=== PATIENT | male | born 1945 | race Caucasian/White ===

== ENCOUNTER → 2021-01-28 00:27 | Outpatient (CLI) | payer MEDICARE, SELFPAY ==
[2021-01-29 17:06] LABS: SARS-CoV-2 RNA PCR Negative
== END ==
PROVIDERS: PCP Family Medicine; Visit Provider Family Medicine
DX: Z76.89 Persons encountering health services in other specified circumstances (principal); Z20.822 Contact with and (suspected) exposure to COVID-19
CPT/HCPCS: C9803; U0003; U0005

== ENCOUNTER → 2022-10-06 12:45 | Outpatient (CLI) | payer MEDICARE, SELFPAY ==
--- NOTE | ~2022-10-06 | MR_ITS ---
MRI of the lumbar spine Clinical History: Radiculopathy Technique: Axial T2-weighted images, and sagittal T1-weighted, T2-weighted, and T2 fat-sat images wer e acquired. Findings: There is no fracture of the lumbar spine. 3 mm retrolisthesis of L4 over L5 noted. No suspi cious bone marrow signal abnormality seen. At L1-L2, there is no disc bulge or herniation. There is mild to moderate facet arthropathy. No spina l canal stenosis or neural foraminal narrowing. At L2-L3, there is minimal disc bulge and moderate to advanced facet arthropathy. There is left later al recess stenosis. There is moderate left neural foraminal narrowing and minimal right neural forami nal narrowing. At L3-L4, there is mild diffuse disc bulge with moderate to severe facet arthropathy. There is probab le mild left lateral recess stenosis. There is mild bilateral neural foraminal narrowing. At L4-L5, there is disc bulge and moderate to severe facet arthropathy. No lise central canal stenos is. There is severe bilateral neural foraminal narrowing. At L5-S1, there is disc bulge and advanced facet arthropathy. Suspected bilateral L5 pars interarticu jesus defects. There is moderate to severe bilateral neural foraminal narrowing, left worse than righ t. Paravertebral soft tissues are unremarkable. 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 3 mm retrolisthesis of L4 over L5. Moderate to advanced degenerative spondylosis, worst at L4-L5 and L5-S1, as detailed above. Reviewed, dictated and finalized at [facility]. 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 3 mm retrolisthesis of L4 over L5. Moderate to advanced degenerative spondylosis, worst at L4-L5 and L5-S1, as det vanita above.
== END ==
PROVIDERS: PCP Family Medicine
DX: M47.26 Other spondylosis with radiculopathy, lumbar region (principal)
CPT/HCPCS: 72148

== ENCOUNTER 2022-11-30 15:54 | Observation (INO) | payer MEDICARE, SELFPAY ==
[2022-11-30] VITALS (52 sets, daily range): BP systolic 60–114; BP diastolic 44–92; PULSE 99–140; RESP 18–44; TEMP 36.4–38.1; O2SAT 63–100; BMI 27.0
--- NOTE | ~2022-11-30 | US_ITS ---
EXAMINATION:US venous doppler LE RT INDICATION:Right leg pain TECHNIQUE: Multiple grayscale, color flow and Doppler images of the right lower extremity deep venous systems were obtained and reviewed. COMPARISON:No prior studies for comparison. FINDINGS: The common femoral, superficial femoral popliteal veins demonstrate normal respiratory vari ation, augmentation and compressibility. There is deep venous thrombosis in the right posterior tibia l and peroneal veins. The right popliteal vein is not visualized. IMPRESSION: 1: Limited study. Deep venous thrombosis of the right posterior tibial and peroneal veins. Reviewed, dictated and finalized at location A. IMPRESSION: 1: Limited study. Deep venous thrombosis of the right posterior tibial and terell heidi veins.
--- NOTE | ~2022-11-30 | XR_ITS ---
XR chest 1V portable 11/30/2022 20:22 Indication: Fever. Possible infection. Procedure: AP portable chest Comparison: No prior studies for comparison. Findings: Heart size normal. No focal air space disease, pulmonary edema, pleural effusion or suspect ed pneumothorax. There are surgical changes consistent with fusion at the upper thoracic spine. No ac luz osseous abnormality. Impression: 1: No acute cardiopulmonary disease. Reviewed, dictated and finalized at location [facility]. Impression: 1: No acute cardiopulmonary disease.
--- NOTE | ~2022-11-30 | XR_ITS ---
Supine portable view of the abdomen Clinical history: NG tube placement Findings: NG tube in satisfactory position. Bowel gas pattern is nonspecific. No evidence for obstruc tion or free air. No abnormal mass lesion or calcification is seen. Osseous structures are intact. Impression: NG tube in satisfactory position. Reviewed, dictated and finalized at [facility]. Impression: NG tube in satisfactory position.
--- NOTE | ~2022-11-30 | XR_ITS ---
XR knee RT 3V 11/30/2022 18:47 Indication: Right knee pain Procedure: 3 views right knee Comparison: No prior studies for comparison. Findings: There is mild-moderate tricompartment osteoarthritis. No fracture or traumatic malalignment . No significant joint effusion. No foreign bodies. Impression: 1: No acute bone or joint abnormality. Reviewed, dictated and finalized at location A. Impression: 1: No acute bone or joint abnormality.
--- NOTE | ~2022-11-30 | XR_ITS ---
Portable chest x-ray Comparison: 11/30/2022 at 8:20 PM Clinical History: Tube placement Findings: Endotracheal tube and NG tube are in satisfactory positions. Questionable focal retrocardi ac airspace disease. Cardiomediastinal silhouette is stable. Bones and soft tissues are unremarkable . Impression: Support tubes, as above. Questionable focal retrocardiac airspace disease. Reviewed, dictated and finalized at location . Impression: Support tubes, as above. Questionable focal retrocardiac airspace disease.
--- NOTE | ~2022-11-30 | XR_ITS ---
Portable chest x-ray Comparison: 11/30/2022 at 11:10 PM Clinical History: Line placement Findings: Endotracheal tube, NG tube, and right IJ line are in satisfactory positions. There is prob able minimal left basilar atelectasis versus pneumonia. Right lung clear. Cardiomediastinal silhouet te is stable. Bones and soft tissues are unremarkable. Impression: Support tubes, as above. No pneumothorax. Probable left basilar atelectasis versus pneumonia. Reviewed, dictated and finalized at location . Impression: Support tubes, as above. No pneumothorax. Probable left basilar atelectasis versus pneumonia.
[2022-11-30] MEDS: SODIUM CHLORIDE 0.9% IV 1,000 ML 999 ML IV CONT ×4 (16:00→20:11)
--- NOTE | 2022-11-30 16:09 | PC.NURSE ---
ED MD notified of hypotension and tachycardia. pt writhing on bed.
[2022-11-30 17:06] LABS: Hematocrit 40.6 % (42.0-52.0); Hemoglobin 13.4 g/dL (14.0-18.0); Immature Platelet Fraction Pct 2.7 % (0.9-11.2); Mean Corpuscular Hemoglobin 30.3 pg (26-34); Mean Corpuscular Volume 91.9 fl (80-100); Mean Platelet Volume 9.6 fl (7.4-10.4); Platelet Count Result 93 k/mm3 (150-375); Red Blood Count 4.42 M/mm3 (4.6-6.20); Red Cell Distribution Width 13.2 % (11.5-14.5); White Blood Count 3.5 K/mm3 (4.5-10.0)
--- NOTE | 2022-11-30 17:18 | ED.GENADULT ---
HPI - General Adult General Chief complaint: Extremity Injury, Lower Stated complaint: RIGHT LEG PAIN Time Seen by Provider: 11/30/22 16:13 History of Present Illness HPI narrative: 76-year-old male presenting to the emergency department for evaluation of increased agitation and right knee pain. Patient states he did have hyaluronic injections in his bilateral knees yesterday and began having increased pain in his right knee that radiates up to his right hip. Patient denies any associated chest pain or shortness of breath. Patient denies any associated nausea vomiting diarrhea. Patient denies any pain with urination, patient denies any headache. Patient denies any recent falls or injuries. Related Data Allergies Allergy/AdvReac Type Severity Reaction Status Date / Time No Known Allergies Allergy Unverified 08/04/14 14:45 Review of Systems Review of Systems: All systems reviewed & are unremarkable except as noted in HPI and below Exam Narrative: APPEARANCE: Agitated appearing and restless. HEAD: normocephalic, atraumatic. EYES: PERRLA/EOMI, conjunctivae clear. NOSE: Normal no drainage NECK: Supple. No adenopathy, no masses. RESPIRATORY: Airway patent, respirations nonlabored. Clear to auscultation bilaterally, no rales, rhonchi, wheezing. CARDIOVASCULAR: Regular rate and rhythm without murmurs rubs or gallops. ABDOMINAL: Soft, nontender, nondistended, normal bowel sounds MUSCULOSKELETAL: Wide range of motion for the right knee but patient does have some tenderness to palpation and does have an effusion of the right knee NEURO: Alert. Cranial nerves II through XII intact. Good gait. Good coordination SKIN: Warm, dry. Normal Color Course Course Emergency Course: 76-year-old male presented the ED for evaluation of right knee pain. Patient did have a low-grade fever and was tachycardic upon arrival to the ED. Patient did have some soft blood pressures but these did respond to rehydration. Patient's fever was treated with Tylenol and did improve. Patient did not have a leukocytosis, patient's hemoglobin is stable at 13.4. Patient had a mildly elevated CRP but his ESR was not elevated. Patient does have a possible EDILBERTO with a creatinine of 2.2. Patient initial lactic acid was elevated and repeat lactic acid was further elevated even after rehydration. UA did show some blood but no other significant evidence of underlying infection. Due to the patient complaining of right knee pain and having concern for underlying infection of the knee was tapped and did show a hemarthrosis. This was not a traumatic tap. Synovial fluid was sent for analysis and patient was started on Vanco and Zosyn. Blood cultures are also pending. Orthopedics was consulted for the knee. Ultrasound did show evidence of a DVT and patient was treated with Lovenox. Case was discussed with the hospitalist and patient was accepted to the IMU. Vital Signs Vital signs: Vital Signs Temperature 97.8 F 11/30/22 15:51 Pulse Rate 130 H 11/30/22 15:51 Respiratory Rate 18 11/30/22 15:51 Blood Pressure 82/62 L 11/30/22 15:51 Pulse Oximetry 98 11/30/22 15:51 Oxygen Delivery Room Air 11/30/22 15:51 Temperature 98.7 F 11/30/22 21:41 Pulse Rate 122 H 11/30/22 21:41 Respiratory Rate 33 H 11/30/22 21:41 Blood Pressure 90/68 L 11/30/22 21:41 Pulse Oximetry 73 L 11/30/22 20:45 Oxygen Delivery Room Air 11/30/22 15:51 Medical Decision Making Vital Signs Vital Signs: Vital Signs Temperature 97.8 F 11/30/22 15:51 Pulse Rate 130 H 11/30/22 15:51 Respiratory Rate 18 11/30/22 15:51 Blood Pressure 82/62 L 11/30/22 15:51 Pulse Oximetry 98 11/30/22 15:51 Oxygen Delivery Room Air 11/30/22 15:51 Temperature 98.7 F 11/30/22 21:41 Pulse Rate 122 H 11/30/22 21:41 Respiratory Rate 33 H 11/30/22 21:41 Blood Pressure 90/68 L 11/30/22 21:41 Pulse Oximetry 73 L 11/30/22 20:45 Oxygen Delivery Room Air
[2022-11-30 17:24] LABS: Albumin Level 3.4 g/dL (3.5-5.1); Alkaline Phosphatase 47 U/L (38-126); Anion Gap 16 mmol/L (8-16); Aspartate Amino Transferase 45 U/L (17-59); Bilirubin,Total 1.6 mg/dL (0.2-1.3); Blood Urea Nitrogen 41 mg/dL (9-20); Calcium 8.4 mg/dL (8.4-10.2); Carbon Dioxide 18 mmol/L (22-30); Chloride 105 mmol/L (98-107); Estimated CRCL calculation 29 ml/min; Estimated Glomerular Filt Rate 29; Glucose 78 mg/dL (65-110); Potassium 3.7 mmol/L (3.4-5.0); Sodium 139 mmol/L (137-145)
[2022-11-30] MEDS: ACETAMINOPHEN 500 MG TABLET 1000 MG PO (17:27)
[2022-11-30 17:30] LABS: Alanine Aminotransferase 44 U/L (6-50)
[2022-11-30 17:31] LABS: Band Neutrophils Percent 32 % (0-6); Lymphocytes Absolute Manual 0.21 K/mm3 (1.1-4.5); Monocytes Absolute Manual 0.24 K/mm3 (0.1-0.90); Monocytes Percent Manual 7 % (3-9); Neutrophils Absolute Manual 3.04 K/mm3 (1.3-6.7); Neutrophils Percent Manual 55 % (46-73); Platelet Estimate Decreased (Adequate); Schistocytes None Seen (NORMAL); Total Cells Counted 100
[2022-11-30 18:03] LABS: CRP 5.6 mg/dL (<1.0)
[2022-11-30 18:14] LABS: Erythrocyte Sedimentation Rate 13 mm/hr (0-20)
[2022-11-30 18:38] LABS: Lactic Acid Reflex 7.3 mmol/L (0.7-2.0)
[2022-11-30] MEDS: HYDROmorphone HCL INJ (*CRX) 1 MG/ML SYR 0.5 MG IV PUSH (18:50)
[2022-11-30] MEDS: LIDOCAINE HCL 1% LOCAL INJ 10 ML VIAL INFILTRATE (20:20)
[2022-11-30] MEDS: PIPERACILLN/TAZ 3.375GM/NS50ML 3.375 GM/50 ML BAG IVPB (20:21)
[2022-11-30 20:47] LABS: Reflex Lactic Acid Yes or No Add Lactic
--- NOTE | 2022-11-30 20:59 | PM.IMHP ---
H&P: HPI History of Present Illness Date/Time: 11/30/22 20:59 Chief Complaint: knee pain Narrative: This is a 76-year-old male with past medical history significant for thoracic spinal stenosis status post fusion, degenerative joint disease, right knee pain, hypertension, benign prostatic hyperplasia, patient had hyaluronic acid injection to the right knee the day before presenting to emergency room comes with right knee pain and swelling after tapping the knee he was found to have hemarthroses of the knee. Most of the history has been obtained from who is at bedside as patient is daily use restless agitated unable to give much history he knows that he is at the hospital however can not detail the events according to he had been in his usual state of health up until after he got his intra-articular hyaluronic acid injection to the knees after that he was not feeling well and woke up in the morning with excruciating pain however did not notice any other issues but did notice that his mentation was not his usual. In emergency room preliminary workup was significant for a lactic acid of 7 a repeat lactic acid came back at 8.5 after patient had received couple of L of NS, BUN 40 creatinine 2.2, platelet count was 93,000 no prior values for comparison were available as patient does not get his care in our facility on regular basis. Sepsis workup was initiated in the emergency room blood cultures were drawn, it was noted swelling of the right lower extremity and a venous Doppler detected acute deep vein thrombosis. Patient was agitated restless and delirious upon arrival to IMU his breathing was very fast and he became obtunded decision was made to transfer patient to ICU for ventilator support. ABG showed a pH of 7.1 pCO2 of 19 PO2 of 90, this was prior to intubation. XR chest 1V portable 11/30/2022 20:22 Indication: Fever. Possible infection. Procedure: AP portable chest Comparison: No prior studies for comparison. Findings: Heart size normal. No focal air space disease, pulmonary edema, pleural effusion or suspected pneumothorax. There are surgical changes consistent with fusion at the upper thoracic spine. No acute osseous abnormality. Impression: 1: No acute cardiopulmonary disease. XR knee RT 3V 11/30/2022 18:47 Indication: Right knee pain Procedure: 3 views right knee Comparison: No prior studies for comparison. Findings: There is mild-moderate tricompartment osteoarthritis. No fracture or traumatic malalignment. No significant joint effusion. No foreign bodies. Impression: 1: No acute bone or joint abnormality. EXAMINATION:US venous doppler LE RT INDICATION:Right leg pain TECHNIQUE: Multiple grayscale, color flow and Doppler images of the right lower extremity deep venous systems were obtained and reviewed. COMPARISON:No prior studies for comparison. FINDINGS: The common femoral, superficial femoral popliteal veins demonstrate normal respiratory variation, augmentation and compressibility. There is deep venous thrombosis in the right posterior tibial and peroneal veins. The right popliteal vein is not visualized. IMPRESSION: 1: Limited study. Deep venous thrombosis of the right posterior tibial and peroneal veins. Review of Systems Review of Systems: ROS unobtainable: Yes unobtainable due to medical condition ( Sepsis) and unobtainable due to mental status ( delirium) [facility], [facility] Social History Social History Smoking status: Never smoker Alcohol intake: never Substance use type: does not use Spiritual care concerns: No Meds Home Medications and Allergies Home Medications Medication Instructions Recorded Confirmed Type clopidogrel 75 mg tablet 75 mg PO DAILY 11/30/22 11/30/22 History cyclobenzaprine 10 mg tablet 10 mg PO BID 11/30/22 11/30/22 History diclofenac sodium 75 mg 75 mg PO Q12H 11/30/22 11/30/22 History tablet,delayed release ramipril 10 mg capsule 10 mg
[2022-11-30 21:06] LABS: Appearance Urine Cloudy (Clear); Bacteria Urine None Seen /hpf; Bilirubin Urine Negative (Negative); Blood Urine 3+ (Negative); Color Urine Yellow (Yellow); Glucose Urine UA Negative (Negative); Granular Casts Urine Present /lpf; Hyaline Casts Urine Present /lpf; Ketones Urine Negative (Negative); Leukocyte Esterase Ur Negative LEU/UL (Negative); Mucus Urine Present /lpf; Nitrate Urine Negative (Negative); Protein Urine 1+ mg/dL (Negative); Specific Grav Ur 1.019 (1.001-1.035); Squamous Epithelial Cell Urine Occasional /hpf (Few); Urobilinogen Urine 0.2 mg/dL (<2.0); WBC Urine 0-5 /hpf
[2022-11-30 21:08] LABS: Add Urine Microscopic? YES
--- NOTE | 2022-11-30 21:31 | PC.NURSE ---
went to us
[2022-11-30] MEDS: VANCOMYCIN 1,250 MG/NS 250 ML 1,250 MG/250 ML BAG 166.67 MG IVPB (21:39)
[2022-11-30 21:54] LABS: Lactic Acid 8.5 mmol/L (0.7-2.0)
--- NOTE | 2022-11-30 22:01 | PC.NURSE ---
report given Jovi
--- NOTE | 2022-11-30 22:09 | PC.NURSE ---
Hospitalist was at bedside. Pt b/p is low and this rn asked for Tylenol for pain. Waiting on new orders
--- NOTE | 2022-11-30 22:24 | ECG_ITS ---
Measurements Intervals [place] Rate: 133 P: 10 [place]: 178 QRS: 0 QRSD: 81 T: 45 QT: 259 QTc: 386 Interpretive Statements SINUS TACHYCARDIA DELAYED PRECORDIAL R/S TRANSITION BASELINE ARTIFACT- I, II, III, AVR, AVL, AVF, V1-V6 ABNORMAL ECG NO PREVIOUS ECG AVAILABLE FOR COMPARISON Electronically Signed On 12-01-2022 6:59:54 CDT by Jose Harley D.O.
[2022-11-30 22:41] LABS: Appearance Synovial Fluid Bloody (Clear); Color Synovial Fluid Red (Colorless); Source Synovial Fluid Synovial fluid
[2022-11-30 22:43] LABS: Alveolar/Arterial O2 Gradient 121.7 mmHg; Base Excess ABG -20.4 mEq/l (+/-2.0); Fractional Inspired Oxygen 32 %; HCO3 ABG 5.2 mEq/l (22.0-26.0); Oxygen Content ABG 20.1 %vol (16.0-22.0); Oxygen Saturation ABG 95.2 % (95.0-100.0); Oxyhemoglobin 93.7 % THb (90.0-100.0); PO2 ABG 90.1 mmHg (80.0-100.0); PO2 FiO2 Ratio Arterial Blood 2.82 %; Total Hemoglobin 15.2 g/dL (12.0-18.0)
[2022-11-30 22:47] LABS: Device NASAL CANNULA; Site Drawn RIGHT BRACHIAL; pH ABG 7.186 (7.350-7.450)
[2022-11-30] MEDS: ETOMIDATE 20 MG/10 ML AMPUL 30 MG IV PUSH (22:55)
[2022-11-30] MEDS: ROCURONIUM BROMIDE 50 MG/5 ML VIAL 60 MG IV PUSH (22:57)
--- NOTE | 2022-11-30 23:00 | PC.NURSE ---
pt transferred to ICU 2 for elective intubation by Dr francisco. etomidate and rocuronium given for induction
--- NOTE | 2022-11-30 23:00 | ADMGEN ---
This patient, Tomás Bazzi, was admitted to IMU Room 207-01. Patient/family oriented to hospital policies and general routines including ID bracelet, bed and alarms, visiting hours, pain management, procedures, bathroom and other care routines, personal items, smoking policy, room service/diet, and visiting hours. Information on how to activate the Rapid Response Team has been discussed. Patient/Family are encouraged to report perceived risks to care and to ask questions if they do not understand what they are told or what they should do.
[2022-11-30] MEDS: NOREPINEPHRINE 8 MG/D5W 250 ML 8 MG/250 ML BAG 18.75 MG IV CONT (23:14)
[2022-11-30] MEDS: SODIUM CHLORIDE 0.9% IV 1,000 ML 125 ML IV CONT (23:17)
[2022-11-30 23:27] LABS: Lymphocytes Synovial Fluid 27 %; Macrophages Synovial Fluid 51 %
[2022-11-30 23:28] LABS: Neutrophils Synovial Fluid 22 % (0-25)
--- NOTE | 2022-11-30 23:29 | PC.NURSE ---
recieved pt. from er at 2209. pt. very anxious and confused. pt. having difficulty breathing. sats 85% on room air. blod pressure low. Dr. Moreno called to come and see pt. At 2251 pt. was transferred to ICU to be intubated after critical blood gases were recieved, Pt's family was updated on pt's condition by the rn. Pt's spouse and brother in law in icu waiting area and pt's son was notified and on his way to the hospital.
[2022-11-30 23:46] LABS: Nucleated Cell Synovial Fluid 2046 /uL (0-200)
[2022-11-30 23:54] LABS: Crystals Synovial Fluid None Seen (None Seen)
[2022-11-30 23:55] LABS: RBC Synovial Fluid 86000 /uL (0-0)
[2022-12-01] VITALS (29 sets, daily range): BP systolic 63–151; BP diastolic 0–104; PULSE 89–122; RESP 18–24; TEMP 34.6–36.6; O2SAT 88–96
[2022-12-01] MEDS: SODIUM BICARBONATE 8.4% 50 MEQ/50 ML SYRINGE 100 MEQ IV PUSH ×2 (00:25→01:35)
[2022-12-01] MEDS: VASOPRESSIN INJ 100 UNITS in DEXTROSE 5% 95 ML IV CONT (00:25)
[2022-12-01] MEDS: SODIUM CHLORIDE 0.9% IV 1,000 ML 999 ML IV CONT (00:30)
[2022-12-01 00:36] LABS: Hematocrit 42.6 % (42.0-52.0); Hemoglobin 13.1 g/dL (14.0-18.0); Mean Corpuscular HGB Conc 30.8 g/dl (32-36); Mean Corpuscular Hemoglobin 30.9 pg (26-34); Mean Corpuscular Volume 100.5 fl (80-100); Mean Platelet Volume 10.8 fl (7.4-10.4); Platelet Count Result 34 k/mm3 (150-375); Red Blood Count 4.24 M/mm3 (4.6-6.20); Red Cell Distribution Width 13.4 % (11.5-14.5); White Blood Count 4.5 K/mm3 (4.5-10.0)
[2022-12-01 00:36] LABS: Base Excess ABG -28.3 mEq/l (+/-2.0); HCO3 ABG 5.8 mEq/l (22.0-26.0); Oxygen Saturation ABG 97.2 % (95.0-100.0); PO2 ABG 165.5 mmHg (80.0-100.0); pH ABG 6.815 (7.350-7.450)
[2022-12-01 00:37] LABS: Alveolar/Arterial O2 Gradient 510.5 mmHg; Carboxyhemoglobin 0.3 % THb (0-2.0); Methemoglobin ABG 0.8 %THb (0-1.5); Oxygen Content ABG 19.4 %vol (16.0-22.0); Oxyhemoglobin 95.7 % THb (90.0-100.0); Reduced Hemoglobin 3.2 %THb (0-5.0); Total Hemoglobin 14.2 g/dL (12.0-18.0)
[2022-12-01 00:38] LABS: Device VENTILATOR; Fractional Inspired Oxygen 100 %; Modified Allen's Test Pass; PO2 FiO2 Ratio Arterial Blood 1.65 %; Site Drawn RIGHT RADIAL
[2022-12-01 00:40] LABS: Arterial Blood Gas PEEP 5 cmH2O; Arterial Blood Gas Vent Mode CMV; Arterial Blood Gas Ventilator rate 18 /MIN
[2022-12-01 00:41] LABS: Lactic Acid Reflex 12.3 mmol/L (0.7-2.0)
[2022-12-01 00:41] LABS: Arterial Blood Gas Tidal Volume 420 ml
[2022-12-01 00:49] LABS: Fibrinogen < 60 mg/dl (215-510)
[2022-12-01 00:59] LABS: Total Cells Counted 100
[2022-12-01 01:00] LABS: Band Neutrophils Percent 14 % (0-6)
[2022-12-01 01:01] LABS: Basophils Absolute Manual 0.04 K/mm3 (0.0-0.1); Basophils Percent Manual 1 % (0-1); Burr Cells 2+ (NORMAL); Eosinophils Absolute Manual 0.04 K/mm3 (0.02-0.5); Eosinophils Percent Manual 1 % (0-4); Lymphocytes Absolute Manual 1.89 K/mm3 (1.1-4.5); Lymphocytes Percent Manual 42 % (18-44); Monocytes Absolute Manual 0.81 K/mm3 (0.1-0.90); Monocytes Percent Manual 18 % (3-9); Neutrophils Absolute Manual 1.71 K/mm3 (1.3-6.7); Neutrophils Percent Manual 24 % (46-73); Platelet Estimate Decreased (Adequate); Schistocytes None Seen (NORMAL); Smudge Cells PRESENT
[2022-12-01 01:02] LABS: INR 3.9; Prothrombin Time 41.7 Seconds (11.1-14.7)
[2022-12-01 01:08] LABS: Ammonia 40 umol/L (9-30)
[2022-12-01] MEDS: HYDROCORTISONE SODIUM SUCCINATE 100 MG/2 ML VIAL IV PUSH ×2 (01:15→02:25)
[2022-12-01 01:20] LABS: Partial Thromboplastin Time > 200.0 SECONDS (22.3-36.8)
[2022-12-01] MEDS: DEXTROSE 50% 25 GM/50 ML SYRINGE IV PUSH (01:30)
[2022-12-01] MEDS: VANCOMYCIN 1,000 MG/NS 250 ML 1,000 MG/250 ML BAG 250 MG IVPB (01:31)
[2022-12-01] MEDS: SODIUM BICARBONATE 8.4% 150 MEQ in WATER, STERILE FOR INJECTION 950 ML IV CONT (01:32)
[2022-12-01 01:35] LABS: Alanine Aminotransferase 659 U/L (6-50); Albumin Level 2.6 g/dL (3.5-5.1); Alkaline Phosphatase 51 U/L (38-126); Anion Gap 22 mmol/L (8-16); Aspartate Amino Transferase 585 U/L (17-59); Bilirubin,Total 3.3 mg/dL (0.2-1.3); Blood Urea Nitrogen 40 mg/dL (9-20); Calcium 7.3 mg/dL (8.4-10.2); Carbon Dioxide 9 mmol/L (22-30); Chloride 112 mmol/L (98-107); Estimated CRCL calculation 22 ml/min; Estimated Glomerular Filt Rate 21; Glucose 36 mg/dL (65-110); Magnesium 2.2 mg/dL (1.6-2.3); Phosphorus 6.1 mg/dL (2.5-4.5); Potassium 4.8 mmol/L (3.4-5.0); Sodium 143 mmol/L (137-145)
[2022-12-01 01:43] LABS: Glucose Point of Care 22 mg/dl (65-105)
[2022-12-01 01:45] LABS: Troponin I 0.077 ng/mL (0.000-0.034)
[2022-12-01] MEDS: SODIUM CHLORIDE 0.9% IV 250 ML 30 ML IV CONT (02:05)
[2022-12-01 02:07] LABS: Glucose Point of Care 189 mg/dl (65-105)
[2022-12-01] MEDS: CEFEPIME 2 GM/NS 50 ML 2 GM/50 ML BAG IVPB (02:25)
[2022-12-01 03:25] LABS: Glucose Point of Care 101 mg/dl (65-105)
--- NOTE | 2022-12-01 04:46 | ECG_ITS ---
Measurements Intervals [place] Rate: 106 P: 181 [place]: 198 QRS: -76 QRSD: 147 T: 26 QT: 400 QTc: 532 Interpretive Statements SINUS OR ECTOPIC ATRIAL TACHYCARDIA WITH FIRST DEGREE AV BLOCK RIGHT BUNDLE BRANCH BLOCK LEFT ANTERIOR FASCICULAR BLOCK ABNORMAL ECG COMPARED TO ECG 11/30/2022 22:32:15 RIGHT BUNDLE-BRANCH BLOCK NOW PRESENT LEFT ANTERIOR FASCICULAR BLOCK NOW PRESENT Electronically Signed On 12-01-2022 11:52:00 CDT by Jose Harley D.O.
--- NOTE | 2022-12-01 04:48 | ED.GENADULT ---
HPI - General Adult General Chief complaint: Extremity Injury, Lower Stated complaint: RIGHT LEG PAIN Time Seen by Provider: 11/30/22 16:13 Related Data Home Medications Medication Instructions Recorded Confirmed clopidogrel 75 mg tablet 75 mg PO DAILY 11/30/22 11/30/22 cyclobenzaprine 10 mg tablet 10 mg PO BID 11/30/22 11/30/22 diclofenac sodium 75 mg 75 mg PO Q12H 11/30/22 11/30/22 tablet,delayed release ramipril 10 mg capsule 10 mg PO DAILY 11/30/22 11/30/22 rosuvastatin 20 mg tablet 20 mg PO QHS 11/30/22 11/30/22 sertraline 50 mg tablet 50 mg PO DAILY 11/30/22 11/30/22 sildenafil 100 mg tablet 100 mg PO DAILY PRN intercourse 11/30/22 11/30/22 tamsulosin 0.4 mg capsule 0.4 mg PO DAILY 11/30/22 11/30/22 Allergies Allergy/AdvReac Type Severity Reaction Status Date / Time No Known Allergies Allergy Unverified 08/04/14 14:45 [facility] Social History Social History Smoking status: Never smoker Alcohol intake: never Substance use type: does not use Spiritual care concerns: No Course Course Emergency Course: I was called to the ICU for cardiac arrest. When I arrived, information I received was that patient was recent admission for concern for PE vs septic shock. Patient was on norepi, vasopressin, phenelyphrine and had been decompensating, acidosis pH 6.9. Patient lost pulses and code blue called. When I arrived to the ICU: Compressions ongoing, patient intubated and bagged via BVM by respiratory therapy. Patient received epi x3, bicarb. Patient noted to be in pulseles V tach, patient was cardioverted x1, 2 min of compressions resumed. On pulse check, patient achieved ROSC. POCUS demonstrating spontaneous organized cardiac activity. Total time of cardiac arrest approximately 10 min. Vital Signs Vital signs: Vital Signs Temperature 97.8 F 11/30/22 15:51 Pulse Rate 130 H 11/30/22 15:51 Respiratory Rate 18 11/30/22 15:51 Blood Pressure 82/62 L 11/30/22 15:51 Pulse Oximetry 98 11/30/22 15:51 Oxygen Delivery Room Air 11/30/22 15:51 Temperature 94.3 F L 12/01/22 03:06 Pulse Rate 97 12/01/22 03:45 Respiratory Rate 24 H 12/01/22 03:06 Blood Pressure 98/0 L 12/01/22 03:45 Pulse Oximetry 96 12/01/22 01:58 Oxygen Delivery Mechanical Ventilation 12/01/22 01:58 Fraction of Inspired Oxygen 100 12/01/22 01:58 Medical Decision Making Vital Signs Vital Signs: Vital Signs Temperature 97.8 F 11/30/22 15:51 Pulse Rate 130 H 11/30/22 15:51 Respiratory Rate 18 11/30/22 15:51 Blood Pressure 82/62 L 11/30/22 15:51 Pulse Oximetry 98 11/30/22 15:51 Oxygen Delivery Room Air 11/30/22 15:51 Temperature 94.3 F L 12/01/22 03:06 Pulse Rate 97 12/01/22 03:45 Respiratory Rate 24 H 12/01/22 03:06 Blood Pressure 98/0 L 12/01/22 03:45 Pulse Oximetry 96 12/01/22 01:58 Oxygen Delivery Mechanical Ventilation 12/01/22 01:58 Fraction of Inspired Oxygen 100 12/01/22 01:58 Lab Data 12/01/22 00:00 12/01/22 00:50 Labs: Lab Results 11/30/22 11/30/22 11/30/22 Range/Units 16:59 17:33 20:00 WBC 3.5 L (4.5-10.0) K/mm3 RBC 4.42 L (4.6-6.20) M/mm3 Hgb 13.4 L (14.0-18.0) g/dL Hct 40.6 L (42.0-52.0) % MCV 91.9 (80-100) fl MCH 30.3 (26-34) pg MCHC 33.0 (32-36) g/dl RDW 13.2 (11.5-14.5) % Plt Count 93 L (150-375) k/mm3 MPV 9.6 (7.4-10.4) fl Immature Gran % (Auto) Not Reportable Neut % (Auto) Not Reportable Lymph % (Auto) Not Reportable [place] % (Auto) Not Reportable Eos % (Auto) Not Reportable Baso % (Auto) Not Reportable Lymph # (Auto) Not Reportable [place] # (Auto) Not Reportable Eos # (Auto) Not Reportable Baso # (Auto) Not Reportable Abs Immat Gran (auto) Not Reportable Absolute Neuts (auto) Not Reportable Absolute Nucleated RBC Not Reportable Total Counted 100 Neutrophils % (Manual) 55 (46-7
[2022-12-01] MEDS: EPINEPHrine INJ 1 MG in DEXTROSE 5% IN WATER 250 ML 15.06 MG IV CONT (04:50)
--- NOTE | 2022-12-01 05:17 | PDCODEBLUE ---
Code Blue Note Code Blue Note Time Arrived at Code Blue: 4:35am Initial Rhythm on Arrival: PEA Airway Management: ON VENT Chest Compressions: In process on arrival to bedside Result of Code Blue: ROSC Cardiac Rhythm Post Code: SVT Code Blue Summary: Epi x 3 Shock x 1
--- NOTE | 2022-12-01 05:50 | PC.NURSE ---
0040 Rudi (son) here to see patient
--- NOTE | 2022-12-01 05:56 | PC.NURSE ---
0320 Temp sensing guillaume inserted. Temp 94.5 Juan ottonieler applied
--- NOTE | 2022-12-01 05:57 | PC.NURSE ---
0428 Dr Hanson informed of BP of 50 per doppler. Orders received for epi gtt 0430 No pulse detected. Code blue called and cpr started. See code sheet 0450 Code status changed to DNR per son and . Farzad Ramirez charge nurse present for conversation 0232 Asystole noted per monitor. Confirmed by 2 RNs. Family at bedside
--- NOTE | 2022-12-01 06:38 | WPDPROCEDUR ---
Procedures Central Line Placement Right IJ: Central Line Date: 11/30/22 Central Line Time: 11:00 Consent: I have discussed with the patient and/or surrogate, the non-emergent placement of a central venous catheter, including its clinical necessity/indication and associated potential risks and complications. The patient and/or surrogate understand(s) and acknowledge(s) the need to proceed with central venous catheter insertion as an important element of the patient's clinical management. Time Out Performed: Yes Patient Position: trendelenburg Patient placed on monitor/pulse ox: Yes Provider Prep: mask, sterile gown, sterile gloves, Max. sterile barrier precautions and cap Central line prep: 2% Chlorhexidine scrub Sterile US Technique with sterile gel/sterile probe covers: Yes Central line lumen inserted: triple [place]ian: 16 Length (cm): 16 Depth of Insertion (cm): 15 Post Procedure: sutured in place, good blood return, all ports aspirated, flushed, capped, transparent dressing, hemostatic product, antimicrobial product and aseptic technique maintained throughout procedure Post procedure x-ray: tip of catheter in good position and no pneumothorax seen Patient tolerated procedure: no complications Complications: none Intubation Intubation Date: 11/30/22 Intubation Time: 11:00 Sedative: etomidate Mg given: 30 Paralytic: rocuronium Mg given: 60 Laryngoscope: fiber optic video scope Assist device used: fiber optic device ET tube size: 7.5 Tube secured depth (cm): 25 Tube secured location: lips Tube placement confirmation: visualized tube passing through cords, equal breath sounds bilaterally and confirmation by capnometry Intubation complications: none
--- NOTE | 2022-12-01 15:14 | PC.NURSE ---
Spoke with Any at [facility]. Relayed blood cultures and synovial fluid. Patient is not eligible for donation based on having positive cultures. Patient's body may be released.
--- NOTE | 2022-12-01 20:57 | PM.DDS ---
Discharge Summary Date and Time Date of : 12/01/22 Time of : 05:27 Provider Pronounced By: yobany greene Probable Cause of Probable Cause of : Septic shock Summary Hospital Course: Chief Complaint: ?knee pain Narrative: ?This is a 76-year-old male with past medical history significant for thoracic spinal stenosis status post ? fusion, degenerative joint disease, right knee pain, hypertension, benign prostatic hyperplasia, patient had hyaluronic acid injection to the right knee the day before presenting to emergency room comes with right knee pain and swelling after tapping the knee he was found to have? hemarthroses of the knee.? Most of the history has been obtained from who is at bedside as patient is daily use restless agitated unable to give much history he knows that he is at the hospital however can not detail the events according to he had been in his usual state of health up until after he got his intra-articular hyaluronic acid injection to the knees after that he was not feeling well and woke up in the morning with excruciating pain however did not notice any other issues but did notice that his mentation was not his usual.? In emergency room preliminary workup was significant for a lactic acid of 7 a repeat lactic acid came back at 8.5 after patient had received couple of L of NS, BUN 40 creatinine 2.2, platelet count was 93,000 no prior values for comparison were available as patient does not get his care in our facility on regular basis.? Sepsis workup was initiated in the emergency room blood cultures were drawn, it was noted swelling of the right lower extremity and a venous Doppler detected acute deep vein thrombosis.? Patient was agitated restless and delirious upon arrival to IMU his breathing was? very fast and he became obtunded decision was made to transfer patient to ICU for ventilator support.? ABG showed a pH of 7.1 pCO2 of 19 PO2 of 90, this was prior to intubation. Patient was placed on ventilator support repeated lab work showed worsening lactic acid value of 12.5 ABG showed a pH of 6.8 pCO2 37 PO2 165 platelet count [id number] patient progressively declined became hypotensive requiring 4 vasopressors bicarb drip was started on broad-spectrum antibiotics as well patient went into cardiac arrest with pulseless electrical activity ROSC was achieved after 3 rounds of epinephrine and shock once for run of V-tach returned rhythm was supraventricular tachycardia. After careful consideration and discussion with family decision was made to make the patient do not resuscitate in case of another episode of cardiac arrest however life support was continued and all efforts patient shortly after. Additional Data Confirmation of as documented by pronouncing clinician: Pupillary Reflex, Palpable Pulses, Response to Stimuli, Heart Tones and Breath Sounds Name of Provider Notified: nolan Time Provider Notified: 05:28 Provider Requests Autopsy: No Family Requests Autopsy: Yes Chemical Operations Specialist Notified: Yes Date [facility] Notified of : 12/01/22 Time [facility] Notified of : 07:00
[2022-12-13 07:34] LABS: Total Protein Synovial Fluid 6.6
== END 2022-12-01 05:27 | disposition expired ==
LOC: ANHED 17:45 → ANHIMU 21:51 → ANHICU 23:23
PROVIDERS: Internal Medicine; Admitting Provider Internal Medicine; Emergency Provider Emergency Medicine; PCP Family Medicine; Visit Provider Internal Medicine
DX: A41.9 Sepsis, unspecified organism (principal); R65.21 Severe sepsis with septic shock; I46.9 Cardiac arrest, cause unspecified; N17.9 Acute kidney failure, unspecified; D65 Disseminated intravascular coagulation [defibrination syndrome]; I82.441 Acute embolism and thrombosis of right tibial vein; I82.451 Acute embolism and thrombosis of right peroneal vein; M25.061 Hemarthrosis, right knee; I10 Essential (primary) hypertension; N40.0 Benign prostatic hyperplasia without lower urinary tract symptoms; Z98.1 Arthrodesis status; Z98.890 Other specified postprocedural states
CPT/HCPCS: 36556; 31500; 92950; 36415; 36430; 36600; 71045; 73562; 80053; 81001; 82140; 82375; 82805; 82945; 82948; 83050; 83605; 83735; 84100; 84157; 84484; 85025; 85055; 85384; 85610; 85652; 85730; 86140; 86900; 86901; 87040; 87070; 87075; 87086; 87147; 87181; 87186; 87205; 89051; 89060; 93005; 93971; 94002; 96361; 96365; 96366; 96375; 96376; 99285; A9270; C1751; G0378; J0171; J0692; J1170; J1720; J2371; J2543; J3370; J7030; J7050; J7060; P9012; P9034